=== PATIENT | female | born 1960 | race Caucasian/White ===

== ENCOUNTER 2016-11-25 15:23 | Emergency (ER) | payer OTHER ==
--- NOTE | ~2016-11-25 | CR262 ---
[facility] A Service of [facility] & [facility] RADIOLOGY TEXT RESULTS PATIENT: PATTI REEVES LOCATION: SED : 64 UNIT #: [id number] AGE: [address]: Fede Nobles MD SEX: F ORDER DR: [id number] [place] [id number] E MR#: [id number] Acc #: [id number] NAME: PATTI REEVES : 1960 SEX: F STUDY DATE/TIME: 11/25/2016 15:46 UNIT: SED ROOM: STUDY DESCRIPTION: CR Toe 2 Views Great Lt Attending Physician: Fede Nobles M.D. Ordering Physician: Fede Nobles M.D. Primary Care Physician: No Primary Care Physician MEDICAL IMAGING REPORT This report is preliminary unless electronic signature is present. EXAM Left great toe. HISTORY [place] dropped on toe 4-5 days ago. Swelling and bruising. FINDINGS Examination demonstrates a comminuted intraarticular fracture of the distal phalanx of the great toe with minimal step-off at the lateral articular surface. There is associated soft tissue swelling. No radiopaque foreign body. Proximal phalanx appears intact. IMPRESSION Comminuted intraarticular fracture of the distal phalanx of the great toe with minimal step-off along the lateral margin and associated soft tissue swelling. Dictated by... Jailene Reeves M.D. THIS IS AN ELECTRONICALLY VERIFIED REPORT Jailene Reeves M.D. at 11/25/2016 9:10 PM Jayme TD: 11/25/2016 18:09 JOB #: [id number] MEDICAL IMAGING REPORT Page 1 of 1
[~2016-11-25 15:23] MED LIST: AMITRYPTYLINE PO; CELEBREX PO; FLEXERIL PO; VISTARIL PO
[2016-11-25] MEDS ORDERED: NO MEDICATIONS (15:29)
== END 2016-11-25 16:52 | disposition home or self-care (01) ==
LOC: SED 15:23
DX: S92.422A Displaced fracture of distal phalanx of left great toe, initial encounter for closed fracture (principal); F17.200 Nicotine dependence, unspecified, uncomplicated; W22.8XXA Striking against or struck by other objects, initial encounter; Y92.009 Unspecified place in unspecified non-institutional (private) residence as the place of occurrence of the external cause; Z88.8 Allergy status to other drugs, medicaments and biological substances
CPT/HCPCS: 29540; 73660; 99283